=== PATIENT | male | born 1965 | race Caucasian/White ===

== ENCOUNTER 2017-04-29 10:36 | Outpatient (CLI) | payer BC ==
[2017-04-29 11:29] LABS: Hemoglobin 16.5 g/dL (14.0-18.0); Mean Corpuscular HGB CONC 32.8 g/dL (32.0-36.0); Mean Corpuscular Hemoglobin 28.7 pg (27.0-31.0); Mean Corpuscular Volume 87.4 fl (80.0-94.0); Mean Platelet Volume 7.9 fL (7.4-10.4); Platelet Count 213 thou/uL (130-400); RBC Distribution Width 13.7 % (11.5-14.5); Red Blood Cell (RBC) Count 5.76 mill/uL (4.70-6.10); White Blood Cell (WBC) Count 8.9 thou/uL (4.8-10.8)
[2017-04-29 11:39] LABS: PTT 23.9 SEC (22.9-36.1); Prothrombin Time 12.9 SEC (12.0-14.7)
[2017-04-29 12:07] LABS: Calcium 9.6 mg/dL (7.8-10.44); Chloride 104 mmol/L (98-107); Potassium 4.8 mmol/L (3.5-5.1); Sodium 138 mmol/L (136-145)
[2017-04-29 12:24] LABS: ALT (SGPT) 20 U/L (8-55); AST (SGOT) 25 U/L (5-34); Albumin 4.5 g/dL (3.5-5.0); Alkaline Phosphatase 70 U/L (40-150); Anion Gap 21 mmol/L (10-20); BUN (Urea Nitrogen) 27 mg/dL (8.4-25.7); Bilirubin, Total 0.7 mg/dL (0.2-1.2); Calc. Creatinine Clearance 0 mL/min (70-130); Carbon Dioxide 19 mmol/L (22-29); Estimated GFR-MDRD 70; Globulin 3.7 g/dL (2.4-3.5); Glucose 142 mg/dL (70-105); Protein, Total 8.2 g/dL (6.0-8.3)
--- NOTE | 2017-04-29 12:28 | RAD ---
TWO VIEWS CHEST: Comparison: 02-04-08 History: Pre-operative radiograph. FINDINGS: Two views of the chest show normal sized cardiomediastinal silhouette. There is no evidence of consol idation, mass, or pleural effusion. The bones are unremarkable. IMPRESSION: No evidence of acute cardiopulmonary disease. POS: [facility]
--- NOTE | 2017-06-28 21:49 | EKG ---
Test Reason : Blood Pressure : / mmHG Vent. Rate : 079 BPM Atrial Rate : 079 BPM P-R Int : 174 ms QRS Dur : 088 ms QT Int : 368 ms P-R-T Axes : 042 022 065 degrees QTc Int : 421 ms Normal sinus rhythm Normal ECG No previous ECGs available Confirmed by IVAN LAU M.D. ([id number]) on 06/28/2017 9:49:20 PM Referred By: NOE Confirmed By:IVAN LAU M.D.
== END 2017-04-29 10:37 | disposition home or self-care (01) ==
LOC: LABBT 10:36
PROVIDERS: ATTEND Internal Medicine Cardiovascular Disease
DX: Z01.818 Encounter for other preprocedural examination (principal); R94.39 Abnormal result of other cardiovascular function study
CPT/HCPCS: 71046; 80053; 85027; 85610; 85730; 93005; 93010

== ENCOUNTER 2017-05-03 06:02 | Inpatient (IN) | payer BC ==
[2017-05-03] MEDS ORDERED: Midazolam HCl 2 mg/2 ml Vial ONE (07:08)
[2017-05-03] MEDS ORDERED: Fentanyl 100 MCG/2 ML VIAL ONE (07:09)
[2017-05-03 07:21] LABS: Cholesterol 174 mg/dl (< 200 Desired); HDL Cholesterol 29 mg/dL (>60 Neg Risk); Triglycerides 447 mg/dL (Less than 150)
[2017-05-03] MEDS ORDERED: Heparin 10,000 UNITS/1 ML VIAL ONE (07:30)
[2017-05-03] MEDS ORDERED: Heparin 25,000 units/D5W 500 ML ONE (07:35)
[2017-05-03] MEDS ORDERED: Nitroglycerin 0.4 MG TAB (25 Tab Bottle) SL PRN (07:38)
[2017-05-03] MEDS ORDERED: Acetaminophen/Codeine 30-300mg Tablet PO PRN ×2 (07:38)
[2017-05-03] MEDS ORDERED: traMADol HCl 50 MG TAB PO PRN (07:38)
[2017-05-03] MEDS ORDERED: Heparin 25,000 units/D5W 500 ML IVPB SCH (07:45)
[2017-05-03] MEDS ORDERED: Heparin 10,000 UNITS/ 10 ML VIAL SLOW IVP SCH (07:45)
[2017-05-03] MEDS ORDERED: Sodium Chloride 0.9% 1,000 ML IV SCH (07:45)
[2017-05-03] MEDS ORDERED: Sodium Chloride 0.9% 200 ML IV SCH (07:45)
[2017-05-03 08:05] LABS: Platelet Count 275 thou/uL (130-400)
[2017-05-03 08:41] LABS: PTT 127.1 SEC (22.9-36.1)
[2017-05-03] MEDS: Lisinopril 20 MG TAB PO SCH (09:00)
[2017-05-03 10:16] VITALS: BMI 40.5
[2017-05-03] MEDS ORDERED: Iopamidol 370 76% 100 ML VIAL ONE (11:33)
[2017-05-03] MEDS ORDERED: Communication Order-Pharmacy FS SCH (18:01)
[2017-05-03] MEDS ORDERED: Temazepam 15 MG CAP PO PRN (18:01)
[2017-05-03] MEDS ORDERED: CEFAZOLIN/Water 2 GM/20 ML SYRINGE SLOW IVP SCH (18:15)
[2017-05-03] MEDS ORDERED: FLU VACC QS2017-18 36 mo. & older 0.5 ML SYRINGE IM ONE (21:00)
--- NOTE | 2017-05-03 23:18 | CON ---
DATE OF CONSULTATION: 05/03/2017. REQUESTING PHYSICIAN: Dax Martinez MD PRIMARY CARE PHYSICIAN: Jose Luis Baumann MD CHIEF COMPLAINT: Chest pain. HISTORY OF PRESENT ILLNESS: The patient is a 51-year-old poorly controlled diabetic man with a stron g family history of premature coronary disease. Over the last few months, he has had several episode s of chest pain associated with an ache or numbness in the ulnar distribution of both forearms and юлия th hands. He underwent cardiac evaluation leading to catheterization today. This demonstrates a thr ee-vessel coronary disease with mildly decreased LV function. PAST MEDICAL HISTORY: Significant for diabetes, hypertension, and hypercholesterolemia. HOME MEDICATIONS: Pitavastatin 2 mg a day, indapamide (Lozol) 2.5 mg a day, Lopressor 25 mg a day, l isinopril 40 mg a day, and a baby aspirin a day. CURRENT MEDICATIONS: Heparin drip, lisinopril 20 mg a day, Toprol-XL 25 mg a day, sublingual nitrogl ycerin. ALLERGIES: He denies any medical allergies, but had muscle aching with ATORVASTATIN. SOCIAL HISTORY: He smokes about a 1/2 pack of cigarettes a day. FAMILY HISTORY: Significant for his father and all of his siblings having MIs starting in early age. His father had 2 coronary bypass procedures. REVIEW OF SYSTEMS: Negative for any transient eye, speech, facial, or extremity symptoms to suggest TIAs. Negative for any shortness of breath. Positive for radiation to his arms; is also positive fo r numbness in the left periorbital and temporal areas, status post surgery for trigeminal neuralgia; and numbness to the soles of his feet. PHYSICAL EXAMINATION: GENERAL: He is a large man in no distress. VITAL SIGNS: Height 6 feet 3 inches, weight 324 pounds. Heart rates in the upper 70s to low 80s, bl ood pressure 126/68, temperature is 98.4. NECK: He has no carotid bruits. No JVD. CHEST: Clear to auscultation. CARDIOVASCULAR: He has regular rate and rhythm. ABDOMEN: Soft and nontender with reducible small umbilical hernia. EXTREMITIES: He has easily palpable radial pulses bilaterally with normal Dann's testing. He has a palpable left femoral pulse. He has a femoral sheath in place in the right groin. He has easily pa lpable dorsalis pedis and posterior tibial pulses. He has some venous stasis changes in his feet and ankles. He has brisk capillary refill in the toes. He has no obvious focal motor deficits. LABORATORY DATA: Shows white count of 8.9, hemoglobin 16.5, hematocrit 50.3, platelets 213,000. INR is 1, PTT is 23.6. Normal electrolytes. Glucose 142, BUN 27, creatinine 1.1, bilirubin is 0.7, alk taylor phosphatase 70, AST 25, ALT 20, calcium 9.6, protein 8.2, albumin 4.5, triglycerides 447, regla sterol 174, HDL was 29. Per Dr. Martinez's office note, his hemoglobin A1c was 9.8. His chest x-ray perhaps shows borderline cardiomegaly and some prominent lung markings. His cardiac catheterization shows an EF of around 40%-45% with an LVEDP of 7. He has a right dominant system wit h extensive disease throughout the right coronary proper and down at the crux. The PDA appears to fi ll by right to right collaterals distally. There is some smooth tapering visible in one of the views in the ostium of the LAD, probably measuring about 20%-30% stenosis. There is a small first septal emt/paramedic and a large second septal emt/paramedic. There is about a 60% lesion in the LAD at that leve l and a high-grade ostial lesion in a large diagonal at that level, as well as some mid disease in th at diagonal. He has an occluded circumflex with small distal targets, but an OM1 ghosts in and thoug h small is reasonable size. IMPRESSION AND PLAN: Three-vessel coronary disease including mild ostial left anterior descending le nhi and a more significant lesion at the level of the large diagonal with an ostial lesion. We will plan on coronary artery bypass grafting. I have discussed with him strategies for multiple arterial conduits because of his young age, and we will plan on left radial and defer bilateral mammaries in light of his poorly controlled diabetes.
[2017-05-04] MEDS: Lisinopril 20 MG TAB PO SCH (05:13)
[2017-05-04] MEDS ORDERED: Fentanyl 100 MCG/2 ML VIAL ONE (06:34)
[2017-05-04] MEDS ORDERED: Midazolam HCl 5 mg/5 ml Vial ONE (06:34)
[2017-05-04] MEDS ORDERED: Dexmedetomidine 200 MCG/2 ML VIAL ONE (06:35)
[2017-05-04] MEDS ORDERED: Vecuronium 10 MG VIAL ONE ×3 (06:35→16:06)
[2017-05-04] MEDS ORDERED: Norepinephrine 8 MG/0.9% NS 250 ML IVPB PRN (06:45)
[2017-05-04] MEDS ORDERED: Promethazine HCl 25 MG/ML VIAL IM PRN (06:45)
[2017-05-04] MEDS ORDERED: Heparin 10,000 UNITS/1 ML VIAL 30,000 UNITS in Sodium Chloride 0.9% 1,000 ML FS SCH (06:45)
[2017-05-04] MEDS ORDERED: Bisacodyl 10 MG SUPP PR PRN (06:45)
[2017-05-04] MEDS ORDERED: HYDROcodone/Acetaminophen 5/325 mg Tablet PO PRN (06:45)
[2017-05-04] MEDS ORDERED: Hetastarch 6% 500 ML 500 ML IVPB PRN (06:45)
[2017-05-04] MEDS ORDERED: Post-Op Insulin Drip Protocol IVPB ONE (06:45)
[2017-05-04] MEDS ORDERED: Guaifenesin DM 100-10/5 ML UDCUP PO PRN (06:45)
[2017-05-04] MEDS ORDERED: Potassium Chloride 20 MEQ/100 ML PREMIX BAG IVPB PRN (06:45)
[2017-05-04] MEDS ORDERED: Bisacodyl 5 MG TAB PO PRN (06:45)
[2017-05-04] MEDS ORDERED: Mag-Al 1200 mg/1200 mg/30 ML UDCUP PO PRN (06:45)
[2017-05-04] MEDS ORDERED: hydrALAZINE 20 MG/ML VIAL SLOW IVP PRN (06:45)
[2017-05-04] MEDS ORDERED: Nitroglycerin 50 MG/250 ML BOT 250 ML IVPB PRN (06:45)
[2017-05-04] MEDS ORDERED: Albumin 5% 500 ML ONE (06:52)
[2017-05-04] MEDS ORDERED: Papaverine 60 MG/2 ML VIAL ONE (06:52)
[2017-05-04] MEDS ORDERED: Dextrose 50% Abboject 50 ML SYRINGE SLOW IVP PRN (07:02)
[2017-05-04] MEDS ORDERED: Dextrose 5% in Water 1,000 ML IV PRN (07:02)
[2017-05-04 07:13] LABS: #Basophils 0.1 thou/uL (0.0-0.2); #Eosinphils 0.1 thou/uL (0.0-0.7); #Lymphocytes 2.2 thou/uL (1.20-3.40); #Monocytes 0.5 thou/uL (0.11-0.59); #Neutrophils 5.7 thou/uL (1.40-6.50); %Basophils 1.2 % (0.0-1.0); %Eosinophils 1.7 % (0.0-10.0); %Lymphocytes 25.7 % (21.0-51.0); %Monocytes 5.7 % (0.0-10.0); %Neutrophils 65.7 % (42.0-75.0); Hemoglobin 15.5 g/dL (14.0-18.0); Mean Corpuscular HGB CONC 33.3 g/dL (32.0-36.0); Mean Corpuscular Hemoglobin 28.9 pg (27.0-31.0); Mean Corpuscular Volume 86.9 fl (80.0-94.0); Platelet Count 257 thou/uL (130-400); RBC Distribution Width 13.8 % (11.5-14.5); Red Blood Cell (RBC) Count 5.36 mill/uL (4.70-6.10); White Blood Cell (WBC) Count 8.6 thou/uL (4.8-10.8)
[2017-05-04 07:29] LABS: Anion Gap 13 mmol/L (10-20); BUN (Urea Nitrogen) 20 mg/dL (8.4-25.7); Calc. Creatinine Clearance 184 mL/min (70-130); Calcium 9.4 mg/dL (7.8-10.44); Carbon Dioxide 24 mmol/L (22-29); Chloride 101 mmol/L (98-107); Estimated GFR-MDRD 80; Glucose 154 mg/dL (70-105); Potassium 4.2 mmol/L (3.5-5.1); Sodium 134 mmol/L (136-145)
[2017-05-04] MEDS ORDERED: Insulin Regular 300 UNITS/3 ML VIAL ONE (08:35)
[2017-05-04] MEDS ORDERED: Ketorolac Tromethamine 30 MG/ML VIAL IVP SCH (12:00)
[2017-05-04] MEDS ORDERED: Protamine Sulfate 50 MG/5 ML VIAL ONE (13:02)
--- NOTE | 2017-05-04 14:59 | RAD ---
CHEST ONE VIEW: History: Post open heart surgery. Comparison: 04-29-17 FINDINGS: The patient is intubated with endotracheal tube tip felt to be above the braydon approximately 1.5 cm. Lungs are hyperinflated. Enteric tube tip below diaphragm. Left central venous catheter tip lower SVC. Left thoracostomy is in place as well as mediastinal drai ns. IMPRESSION: Expected post-operative changes without complication. POS: [facility]
--- NOTE | 2017-05-04 15:06 | OP ---
DATE OF PROCEDURE: 05/04/2017 PROCEDURES PERFORMED: Coronary artery bypass grafting x4 with sequential left internal mammary arter y to the second diagonal to the distal left anterior descending, reverse greater saphenous vein graft from the aorta to the distal posterior descending artery and left radial artery from the [place] of the posterior descending artery proximal anastomosis to the obtuse marginal, left subclavian central stef e placement. PREOPERATIVE DIAGNOSIS: Coronary artery disease. POSTOPERATIVE DIAGNOSIS: Coronary artery disease. SURGEON: Agustin George M.D. UNLOADER OPERATOR: Harvey Beasley M.D. ANESTHESIA: General endotracheal. INDICATIONS: The patient is a 51-year-old poorly controlled diabetic man with a strongly positive [facility] history for premature coronary disease. He had had several episodes of chest discomfort radiati ng to both forearms and hands and was found to have severe 3-vessel coronary disease with mildly decr eased LV function. He is now taken to the operating room for revascularization. FINDINGS: Pump time 97 minutes. Cross clamp time 80 minutes. There was some plaque in the aortic r oot, prompting construction of proximal anastomoses under cross clamp. He had a good quality conduit . The LAD was about a 1.5-2 mm good quality vessel distally. The second diagonal was diffusely dise ased through its mid portion. Distally, it was 1.5 mm in fairly good quality, the obtuse marginal wa s 1.5-2 mm in good quality and were grafted. The PDA was diffusely diseased out through its mid port ion distally and were grafted as 1.5-2 mm good quality vessel. The pericardium was closed. NARRATIVE REPORT: After informed consent was obtained, the patient was taken to the operating room a nd placed in supine position on the operating table. After the induction of general anesthesia, the patient's left upper chest was prepped and draped in sterile fashion. A large bore needle was used t o cannulate the left subclavian vein after the patient had been placed in Trendelenburg. Through the Seldinger technique, the left subclavian vein was cannulated with a triple lumen catheter. All thre e ports easily aspirated and flushed. The line was secured. The patient's left upper extremity tors o, groins and lower extremities were then prepped and draped in sterile fashion and hearing aid assistant harvest ed vein from the left thigh endoscopically starting at the knee where it had been identified ultrason ographically and going to the groin. It was prepared for use as a graft and the harvest sites were c losed in layers of subcutaneous and subcuticular Vicryl. The radial artery was exposed at the wrist, it was isolated there and a test occlusion showed good Doppler signal in the palmar arch and in the digits preserved with the radial artery occluded. The radial artery was then harvested from the wris t to about the level of the interosseous vessel controlling side branches with small Hemoclips. It w as doubly ligated and divided first proximally, back bleeding was observed and that was doubly ligate d and divided distally. The distal limb was cannulated with a small bore olive tip needle and papave rine solution was used to distend the radial artery to relieve spasm and to assess for adequacy of co ntrol of side branches. The wound was irrigated and closed in layers of subcutaneous and subcuticula r Vicryl. Median sternotomy was performed. The left pleural space was entered and the left KERWIN was mobilized as a skeletonized in situ graft from the level of the xiphoid to the level of the subclavia n vein. Side branches controlled with small Hemoclips. The patient was heparinized. The mammary wa s ligated and divided distally. There is good flow through the mammary which was then instilled intr aluminally with papaverine solution. The mammary bed was inspected for hemostasis. The KERWIN retracto r was placed with the De La Rosa retractor. The pericardium was opened and marsupialized. The aorta w as palpated and appeared to be soft. A double concentric pursestring of 2-0 Ethibond was placed in t he ascending aorta just beyond the pericardial reflection. Then, a single pursestring was placed in the right atrial appendage. Aortic and venous cannulae were inserted and secured by their pursestrin gs. The plane between the aorta and the pulmonary artery was developed. Cardiopulmonary bypass was instituted. The heart was examined. The vessel to be bypassed were identified, reexamining the de-p ressurized aorta, plaque to be felt at the very base of the root on the right lateral aspect and prep arations were made to perform the operation under single clamp to avoid disrupting that plaque. Aort ic cross clamp was applied and cardioplegia was administered through aortic root needle. A longitudi nal slit was made in the pericardium anterior to the left phrenic nerve, so as mammary could be passe d. When arrest had been achieved, attention was turned to the PDA, was exposed and opened distally w ith a Norton blade and Gustavo scissors and saphenous vein was anastomosed theirs end-to-side with r unning Prolene suture. Attention was then turned to the obtuse marginal. The more anterior branch a ppeared to be the larger better quality vessel. It was opened. The proximal end of the radial arter y was freshened and slightly spatulated and anastomosed their end-to-side with running 7-0 Prolene. The mammary was introduced into the pericardium. It appeared to be an adequate lie in length in orde r to sequence the second diagonal and the distal LAD. The diagonal was opened and the corresponding longitudinal arteriotomy was made, left mammary iimj-cd-guci anastomosis was then constructed from th e mammary to the diagonal with running 7-0 Prolene. The LAD was then opened and the end of the mamma ry was then anastomosed their end-to-side with running 7-0 Prolene. Additional cardioplegia was admi nistered. At that point, an aortotomy was made in the ascending aorta with a scalpel and punch. The PDA graft was brought along the right side of the heart and trimmed to length and spatulated and arabella stomosed their end-to-side with a running Prolene with that suture line slightly frustrated. Additio nal cardioplegia was administered to flush the root of air and help distend the vein graft and then a longitudinal venotomy was made in the [place] of that vein graft proximal anastomosis, it was extended with scissors. The radial graft to the obtuse marginal was trimmed to length and spatulated and anas tomosed there with running 7-0 Prolene. Again with that suture line frustrated, cardioplegia was adm inistered through the root needle to help flush of air and the suture line was secured. The patient was placed in Trendelenburg and with the root back on suction and the mammary pedicle released, the a ortic cross clamp was removed. The vein graft was deaired and the bulldog removed from it. The anas tomoses were inspected for hemostasis, 36 Emir[place] left chest T-tube was brought out through a separate incision and secured to suture. The posterior pericardial drain was brought out through separate in cision and secured. Right atrial and right ventricular temporary epicardial pacing wires were placed . The needle was removed and insertion site controlled with a pursestring Prolene suture. The patie nt was then easily from cardiopulmonary bypass. Aortic and venous cannulae were removed an d their pursestring secured. Protamine was administered. When hemostasis was adequate, an anterior mediastinal drain was placed and the pericardium was easily closed over with running Vicryl. The cori rnum was reapproximated with #7 stainless steel wires. The fascia was closed over the wires with hea vy Vicryl. Subcutaneous tissue was irrigated and reapproximated and skin was closed with Vicryl subc uticular stitch. The wounds were dressed and the patient was taken to the Intensive Care in stable c ondition.
[2017-05-04] MEDS: Sodium Chloride 0.9% 1,000 ML IV SCH ×2 (15:28→17:02)
[2017-05-04] MEDS: Ondansetron HCl/PF 4 MG/2 ML Vial IVP PRN (15:30)
[2017-05-04 15:39] LABS: Base Excess (BEa) -4.5 mEq/L (0 (+/-) 2.5); CO2 Tension 44.1 mmHg (35.0-45.0); Calcium, Ionized 1.1 mmol/L (1.12-1.30); Hematocrit-ABG 43.9 % (42.0-52.0); Hemoglobin (Hb) 14.6 g/dL (14.0-18.0); O2 Tension (PaO2) 87.3 mmHg (80.0-100.0); Puncture Site ALINE; pH, Arterial 7.31 (7.35-7.45)
[2017-05-04 15:40] LABS: ALV-art Gradient 570.575 (0-20)
[2017-05-04] MEDS: CEFAZOLIN 1 GM, Syringe 2.5 ML in Sterile Water 7.5 ML SLOW IVP SCH ×2 (15:47→15:48)
[2017-05-04] MEDS: Famotidine/PF 20 mg/2ml Vial SLOW IVP SCH ×2 (15:48→20:38)
[2017-05-04 15:56] LABS: Hemoglobin 15.1 g/dL (14.0-18.0); Mean Corpuscular HGB CONC 32.9 g/dL (32.0-36.0); Mean Corpuscular Volume 88.2 fl (80.0-94.0); Mean Platelet Volume 7.2 fL (7.4-10.4); Platelet Count 247 thou/uL (130-400); RBC Distribution Width 13.9 % (11.5-14.5); Red Blood Cell (RBC) Count 5.22 mill/uL (4.70-6.10); White Blood Cell (WBC) Count 27.6 thou/uL (4.8-10.8)
[2017-05-04 16:00] LABS: INR-International Normal Ratio 1.2; PTT 30.9 SEC (22.9-36.1); Prothrombin Time 15.1 SEC (12.0-14.7)
[2017-05-04] MEDS ORDERED: Heparin 5,000 UNITS/ML VIAL ONE (16:06)
[2017-05-04] MEDS ORDERED: Cardioplegic Soln 1,000 ML BAG ONE (16:06)
[2017-05-04] MEDS ORDERED: Calcium Chloride 1 GM/10 ML Abboject SYRINGE ONE (16:06)
[2017-05-04] MEDS ORDERED: Protamine Sulfate 250 MG/25 ML VIAL ONE (16:06)
[2017-05-04] MEDS ORDERED: ePHEDrine/0.9% NaCl/PF SYRINGE 50 mg/10 ml ONE (16:06)
[2017-05-04] MEDS ORDERED: Magnesium 5 GM/10 ML VIAL ONE (16:06)
[2017-05-04] MEDS ORDERED: Nitroglycerin 50 MG/250 ML BOT ONE (16:06)
[2017-05-04] MEDS ORDERED: Aminocaproic Acid 5 GM/20 ML VIAL ONE (16:06)
[2017-05-04] MEDS ORDERED: Heparin 30,000 units/30 ml VIAL ONE (16:06)
[2017-05-04] MEDS ORDERED: PHENYLEPHRINE-NS 100 MCG/ML 10 ML SYRINGE ONE (16:06)
[2017-05-04] MEDS ORDERED: Lidocaine 1% PF 5 ML VIAL ONE (16:06)
[2017-05-04] MEDS ORDERED: Potassium Chloride 60 MEQ/30 ML VIAL ONE (16:06)
[2017-05-04] MEDS ORDERED: Lidocaine 2% PF 100 mg/5 ml Syringe ONE (16:06)
[2017-05-04] MEDS ORDERED: Sodium Bicarb 50 MEQ/50 ML VIAL ONE (16:06)
[2017-05-04] MEDS ORDERED: Propofol 200 MG/20 ML VIAL ONE (16:06)
[2017-05-04 16:08] LABS: Anion Gap 12 mmol/L (10-20); BUN (Urea Nitrogen) 22 mg/dL (8.4-25.7); Calc. Creatinine Clearance 130 mL/min (70-130); Calcium 8.6 mg/dL (7.8-10.44); Carbon Dioxide 24 mmol/L (22-29); Chloride 106 mmol/L (98-107); Estimated GFR-MDRD 54; Glucose 152 mg/dL (70-105); Potassium 4.3 mmol/L (3.5-5.1); Sodium 138 mmol/L (136-145)
[2017-05-04 16:25] LABS: Band 6 % (5-11); Eosinophils 1 % (0-10); Lymphocytes 1 % (21-51); MDiff Complete? YES; Monocytes 3 % (0-10); Neutrophil 89 % (42-75); PLT Morphology Comment Appears Adequate
[2017-05-04] MEDS ORDERED: Norepinephrine 8 MG in Sodium Chloride 0.9% 250 ML 250 ML IVPB PRN ×2 (16:30→16:46)
[2017-05-04] MEDS: Ketorolac Tromethamine 30 MG/ML VIAL IVP SCH ×3 (17:27→23:51)
[2017-05-04 20:06] LABS: Actual Bicarbonate (HCO3a) 21.2 mEq/L (22-26); Base Excess (BEa) -4.2 mEq/L (0 (+/-) 2.5); CO2 Tension 40.1 mmHg (35.0-45.0); Hematocrit-ABG 42.2 % (42.0-52.0); Hemoglobin (Hb) 13.5 g/dL (14.0-18.0); O2 Tension (PaO2) 59.2 mmHg (80.0-100.0); pH, Arterial 7.34 (7.35-7.45)
[2017-05-04 20:07] LABS: ALV-art Gradient 175.875 (0-20); Calcium, Ionized 1.1 mmol/L (1.12-1.30); Puncture Site LINE
[2017-05-04] MEDS: Fentanyl 100 MCG/2 ML VIAL SLOW IVP PRN ×2 (20:37→22:30)
[2017-05-04 20:38] LABS: Hemoglobin 13.8 g/dL (14.0-18.0)
[2017-05-04 20:53] LABS: Potassium 4.6 mmol/L (3.5-5.1)
--- NOTE | 2017-05-04 20:59 | EKG ---
Test Reason : POST CABG Blood Pressure : / mmHG Vent. Rate : 092 BPM Atrial Rate : 092 BPM P-R Int : 162 ms QRS Dur : 090 ms QT Int : 386 ms P-R-T Axes : 068 022 072 degrees QTc Int : 477 ms Normal sinus rhythm Normal ECG When compared with ECG of 29-APR-2017 11:13, (Unconfirmed) QT has lengthened Confirmed by MARGARITA RONDON ([id number]) on 05/04/2017 8:58:57 PM Referred By: QUYNH Confirmed By:MARGARITA RONDON
[2017-05-05] MEDS: Fentanyl 100 MCG/2 ML VIAL SLOW IVP PRN ×2 (03:31→20:45)
[2017-05-05] MEDS: Sodium Chloride 0.9% 1,000 ML IV SCH ×2 (03:32→10:45)
[2017-05-05 04:56] LABS: Anion Gap 10 mmol/L (10-20); BUN (Urea Nitrogen) 23 mg/dL (8.4-25.7); Calc. Creatinine Clearance 155 mL/min (70-130); Calcium 8.2 mg/dL (7.8-10.44); Carbon Dioxide 24 mmol/L (22-29); Chloride 108 mmol/L (98-107); Estimated GFR-MDRD 66; Glucose 139 mg/dL (70-105); Sodium 138 mmol/L (136-145)
[2017-05-05 05:01] LABS: #Lymphocytes 2.3 thou/uL (1.20-3.40); #Neutrophils 12.1 thou/uL (1.40-6.50); %Basophils 0.3 % (0.0-1.0); %Eosinophils 0.1 % (0.0-10.0); %Monocytes 6.7 % (0.0-10.0); %Neutrophils 77.9 % (42.0-75.0); Mean Corpuscular HGB CONC 32.6 g/dL (32.0-36.0); Mean Corpuscular Hemoglobin 28.7 pg (27.0-31.0); Mean Corpuscular Volume 88.1 fl (80.0-94.0); Mean Platelet Volume 7.2 fL (7.4-10.4); Platelet Count 273 thou/uL (130-400); RBC Distribution Width 14.2 % (11.5-14.5); Red Blood Cell (RBC) Count 4.53 mill/uL (4.70-6.10); White Blood Cell (WBC) Count 15.6 thou/uL (4.8-10.8)
[2017-05-05] MEDS: Ketorolac Tromethamine 30 MG/ML VIAL IVP SCH ×2 (05:45→11:43)
[2017-05-05] MEDS: HYDROcodone/Acetaminophen 5/325 mg Tablet PO PRN ×3 (06:08→16:41)
[2017-05-05] MEDS: Ondansetron HCl/PF 4 MG/2 ML Vial IVP PRN (06:09)
--- NOTE | 2017-05-05 06:36 | CON ---
DATE OF CONSULTATION: 05/04/2017 HISTORY OF PRESENT ILLNESS: Mr. Foote is a 51-year-old male who has diabetes. He underwent coronary artery bypass grafting today, consulted to assist in his management. The nurses stated he was having significant obstructive apnea last night so they continuously were waking him up. PAST MEDICAL HISTORY: Remarkable for diabetes, hypertension, and lipid disorder. MEDICATIONS: Prior to admission, he was on a statin, Lozol, Lopressor, lisinopril, and aspirin. SOCIAL HISTORY: He is half pack a day smoker. He is not a daily drinker. He has no history of drug use. ALLERGIES: He has had muscle aches with ATORVASTATIN for drug allergies. FAMILY HISTORY: Positive for vascular disease, he has several siblings that have had coronary artery disease. REVIEW OF SYSTEMS: Review of systems on admission was remarkable for chest discomfort radiating into his arm. PHYSICAL EXAMINATION: VITAL SIGNS: Blood pressure 103/72, heart rate is 89, respiratory rate is per mechanical ventilation. His arterial blood pressure is 105/61, he is afebrile. HEENT: Pupils are equal. Sclerae is anicteric. NECK: Supple. LUNGS: Sternum is bandaged. Lungs are clear. HEART: Regular rhythm. ABDOMEN: Soft. EXTREMITIES: Without asymmetry. LABORATORY DATA: White count was 8.6 this morning, 27.6 postop, hemoglobin stable at 15.1 at 2:30, hemoglobin this evening is 13.8, platelets 247,000. Blood gas 7.34, CO2 of 40, pO2 of 59. Electrolytes were normal. IMPRESSION: 1. Coronary artery disease, status post coronary artery bypass grafting. 2. Probable obstructive sleep apnea. He can wean for criteria, but would probably benefit from going on BiPAP once extubated if he is completely awake. We will be happy to follow with the other physicians caring for him. Critical care time was 30 minutes. [facility]ITAL[facility]
[2017-05-05] MEDS: Famotidine/PF 20 mg/2ml Vial SLOW IVP SCH ×2 (08:15→20:49)
[2017-05-05] MEDS: Lisinopril 20 MG TAB PO SCH (08:15)
--- NOTE | 2017-05-05 08:51 | RAD ---
PORTABLE AP CHEST: Date: 05-05-17 History: Post open heart surgery. Comparison: 05-04-17 FINDINGS: The endotracheal tube and nasogastric tubes have been removed. Left subclavian central venous cathete r is again noted in place. Radiopaque tubing overlies the left lung base which may be related to asya tor leads. The left sided thoracotomy tube appears to have been removed as well. There is no pneumoth orax seen on this exam. The cardiac silhouette and bronchovascular markings are accentuated by a shal low depth of inspiration, and there is probably mild bibasilar atelectasis. Median sternotomy wires a re again related to prior CABG. IMPRESSION: 1. Interval removal of the endotracheal tube, nasogastric tube and left sided thoracotomy tube. No pn eumothorax is seen. 2. Bibasilar atelectasis. There is also accentuation of the bronchovascular markings and cardiac silh ouette due to the shallow depth of inspiration. POS: [facility]
[2017-05-05] MEDS ORDERED: Hetastarch 6% 500 ML 500 ML IVPB PRN (09:28)
[2017-05-05] MEDS ORDERED: Furosemide 40 MG/4 ML VIAL SLOW IVP SCH (17:45)
--- NOTE | 2017-05-05 18:40 | PRG ---
DATE OF SERVICE: 05/05/2017 SUBJECTIVE: Mr. Foote is sleeping on BiPAP today. OBJECTIVE: GENERAL: He is in no distress. VITAL SIGNS: Heart rate 102, blood pressure 109/71, respiratory rate 15, oximetry is 90%. LUNGS: C lear. HEART: Regular rhythm. ABDOMEN: Soft. IMAGING: Chest radiograph was reviewed and shows bibasilar atelectasis as expected. LABORATORY DATA: White count 15.6, hemoglobin 13.0, platelets 273. Sodium 138, potassium 4, chloride 108, bicarbonate 24, BUN 23, creatinine 1.16. IMPRESSION: 1. Status post coronary artery bypass grafting. 2. Probable untreated sleep apnea. PLAN: Continue BiPAP at bedtime and p.r.n.
[2017-05-05] MEDS: Insulin Regular 300 UNITS/3 ML VIAL SC PRN (21:41)
[2017-05-06] MEDS: Acetaminophen 325 MG TAB PO PRN (00:46)
[2017-05-06] MEDS: Insulin Regular 300 UNITS/3 ML VIAL SC PRN ×5 (00:48→21:50)
[2017-05-06] MEDS: HYDROcodone/Acetaminophen 5/325 mg Tablet PO PRN (02:00)
[2017-05-06 04:48] LABS: #Lymphocytes 2.7 thou/uL (1.20-3.40); #Monocytes 0.9 thou/uL (0.11-0.59); #Neutrophils 10.7 thou/uL (1.40-6.50); %Basophils 0.1 % (0.0-1.0); %Eosinophils 0.2 % (0.0-10.0); %Lymphocytes 18.7 % (21.0-51.0); %Monocytes 6.3 % (0.0-10.0); %Neutrophils 74.7 % (42.0-75.0); Hemoglobin 11.5 g/dL (14.0-18.0); Mean Corpuscular HGB CONC 32.6 g/dL (32.0-36.0); Mean Corpuscular Volume 88.8 fl (80.0-94.0); Mean Platelet Volume 7.1 fL (7.4-10.4); Platelet Count 190 thou/uL (130-400); Red Blood Cell (RBC) Count 3.96 mill/uL (4.70-6.10); White Blood Cell (WBC) Count 14.3 thou/uL (4.8-10.8)
[2017-05-06 05:03] LABS: Anion Gap 12 mmol/L (10-20); BUN (Urea Nitrogen) 21 mg/dL (8.4-25.7); Calc. Creatinine Clearance 172 mL/min (70-130); Calcium 8.1 mg/dL (7.8-10.44); Carbon Dioxide 25 mmol/L (22-29); Chloride 104 mmol/L (98-107); Estimated GFR-MDRD 74; Glucose 154 mg/dL (70-105); Potassium 4.1 mmol/L (3.5-5.1); Sodium 137 mmol/L (136-145)
[2017-05-06] MEDS: Fentanyl 100 MCG/2 ML VIAL SLOW IVP PRN (05:36)
[2017-05-06] MEDS ORDERED: Artificial Tears 18 DROP/0.9 ML EA EYE PRN (07:15)
[2017-05-06] MEDS ORDERED: Guaifenesin DM 100-10/5 ML UDCUP PO PRN (07:15)
[2017-05-06] MEDS ORDERED: Mineral Oil ENEMA PR PRN (07:15)
[2017-05-06] MEDS ORDERED: diphenhydrAMINE 25 MG CAP PO PRN (07:15)
[2017-05-06] MEDS ORDERED: Nitroglycerin 0.4 MG TAB 1 EACH SL PRN (07:15)
[2017-05-06] MEDS ORDERED: Bisacodyl 5 MG TAB PO PRN (07:15)
[2017-05-06] MEDS ORDERED: Mag-Al 1200 mg/1200 mg/30 ML UDCUP PO PRN (07:15)
[2017-05-06] MEDS ORDERED: Bisacodyl 10 MG SUPP PR PRN (07:15)
[2017-05-06] MEDS ORDERED: Zolpidem Tartrate 5 MG TAB PO PRN (07:15)
--- NOTE | 2017-05-06 08:37 | RAD ---
PORTABLE AP CHEST XRAY: DATE: 05/06/17. HISTORY: Post open heart surgery. COMPARISON: 05/05/17. FINDINGS: Left subclavian central venous catheter remains in place and unchanged in position. Postsurgical liliana nges related to median sternotomy are again noted. The cardiac silhouette does appear enlarged. Rad iopaque tubing overlies the left lung and is probably related to left-sided thoracostomy tube in kelvin tion to overlying monitor leads. There are parenchymal changes seen at each lung base probably relat ed to bibasilar atelectasis. Linear density is seen in the region of the right mid lung zone which m ay be related to either atelectasis or a small amount of fluid within the minor fissure. Pulmonary v asculature is at the upper limits of normal. No pneumothorax is appreciated. IMPRESSION: 1. Left-sided thoracostomy tube without an obvious pneumothorax seen. 2. Bibasilar atelectasis. A tiny left pleural effusion cannot be entirely excluded. 3. Cardiomegaly. POS: [facility]
[2017-05-06] MEDS: Aspirin 325 mg Enteric Coated Tablet PO SCH (08:52)
[2017-05-06] MEDS: Lisinopril 20 MG TAB PO SCH (08:52)
[2017-05-06] MEDS: Furosemide 40 MG TAB PO SCH ×2 (08:52→13:26)
[2017-05-06] MEDS: Famotidine/PF 20 mg/2ml Vial SLOW IVP SCH (08:53)
[2017-05-06] MEDS ORDERED: Furosemide 20 MG TAB PO SCH (09:00)
[2017-05-06] MEDS: Carvedilol 3.125 MG TAB PO SCH ×2 (09:02→20:40)
[2017-05-06] MEDS: Ketorolac Tromethamine 30 MG/ML VIAL IVP SCH ×3 (11:20→23:11)
[2017-05-06] MEDS: Famotidine 20 MG TAB PO SCH (20:40)
--- NOTE | 2017-05-07 02:35 | PRG ---
DATE OF SERVICE: 05/06/2017 SUBJECTIVE: Jose Carlos Foote is clearly doing a little better each day. He is sleeping with his BiPAP. I have priced auto BiPAP and auto CPAP. Auto BiPAP ends up being about 1000 dollars or a little mo re. Auto CPAP is just under 500 dollars. Planned to switch him to CPAP tonight in the setting at 12 cm of water pressure and see how he does. OBJECTIVE: VITAL SIGNS: Blood pressure 137/69, heart rates in the 90s, respiratory rate is 18. LUNGS: Clear. HEART: Regular rhythm. ABDOMEN: Soft. LABORATORY DATA: White count 14.3, hemoglobin 11.5, platelets 190. Electrolytes are normal. Creatinine is 1.05. 1. Obesity hypoventilation/sleep apnea, severe, present prior to his operation. 2. We will treat him empirically with CPAP. Planned to prescribe an auto CPAP device for family deborah orrow. They can take over to one of the nearby [employer] companies and buy. [employer] across [facility] has several in stock and I would set him with a pressure range of 9 to probably 16 or 17 to see how he does. The family told me very quickly they are willing to buy one and the patient has had the same. We will do a sleep study later or simply monitoring with downloads for now until he recovers fully fr om his cardiac surgery. Chest radiograph today shows no new significant abnormalities, I reviewed this. IMPRESSION: 1. Status post coronary artery bypass grafting. 2. Obesity. 3. Untreated sleep apnea, tolerating BiPAP. PLAN: CPAP as mentioned tonosman and then I prescribe an auto titrating CPAP device tomorrow.
[2017-05-07 04:45] LABS: #Eosinphils 0.1 thou/uL (0.0-0.7); #Lymphocytes 2.3 thou/uL (1.20-3.40); #Monocytes 0.7 thou/uL (0.11-0.59); %Basophils 0.1 % (0.0-1.0); %Lymphocytes 20.6 % (21.0-51.0); %Monocytes 6.3 % (0.0-10.0); Hemoglobin 10.4 g/dL (14.0-18.0); Mean Corpuscular HGB CONC 32.8 g/dL (32.0-36.0); Mean Corpuscular Hemoglobin 29.2 pg (27.0-31.0); Mean Corpuscular Volume 89.2 fl (80.0-94.0); Mean Platelet Volume 7.3 fL (7.4-10.4); Platelet Count 190 thou/uL (130-400); RBC Distribution Width 13.8 % (11.5-14.5); Red Blood Cell (RBC) Count 3.55 mill/uL (4.70-6.10)
[2017-05-07 04:53] LABS: Anion Gap 12 mmol/L (10-20); BUN (Urea Nitrogen) 27 mg/dL (8.4-25.7); Calc. Creatinine Clearance 180 mL/min (70-130); Calcium 8.3 mg/dL (7.8-10.44); Carbon Dioxide 28 mmol/L (22-29); Chloride 101 mmol/L (98-107); Estimated GFR-MDRD 77; Glucose 125 mg/dL (70-105); Potassium 3.4 mmol/L (3.5-5.1); Sodium 138 mmol/L (136-145)
[2017-05-07] MEDS: Insulin Regular 300 UNITS/3 ML VIAL SC PRN ×2 (05:59→20:55)
[2017-05-07] MEDS: Ketorolac Tromethamine 30 MG/ML VIAL IVP SCH (06:01)
[2017-05-07] MEDS: Famotidine 20 MG TAB PO SCH ×2 (09:38→20:56)
[2017-05-07] MEDS: Carvedilol 3.125 MG TAB PO SCH ×2 (09:38→20:56)
[2017-05-07] MEDS: Aspirin 325 mg Enteric Coated Tablet PO SCH (09:38)
[2017-05-07] MEDS: Lisinopril 20 MG TAB PO SCH (09:38)
[2017-05-07] MEDS: Furosemide 40 MG TAB PO SCH ×2 (09:38→14:25)
--- NOTE | 2017-05-07 13:19 | PRG ---
DATE OF SERVICE: 05/07/2017 SUBJECTIVE: I met with his family, Mr. Foote is willing to buy an auto BiPAP. He probably can sell it back to Medicare equipment if he only uses it until a sleep study, but this may be actually an ad equate device to manage his sleep apnea after his sleep study. OBJECTIVE: VITAL SIGNS: His blood pressure is 133/85, heart rate is 90, respiratory rate in the teens. LUNGS: Clear. HEART: Regular rhythm. ABDOMEN: Soft and nontender. He is starting to ambulate more. We will set the auto BiPAP at a arrange of 9-15. I have written an order in computer for them to use it whenever he naps and when he sleeps at night. His family will go over and purchase the auto BiPAP device from [employer] equipment across the street . LABORATORY DATA: Today his white count is 11, hemoglobin 10.4, platelets 190. Sodium 138, potassium 3.4, chloride 101, bicarbonate 28, BUN 27, creatinine 1.02. IMPRESSION: Severe untreated sleep apnea. He says he feels 100% better from a mental status and kendal rtness standpoint than he did prior to coming to the hospital. It was clear to me that he really nee ded this, so it is appropriate to manage this auto titrating device for now. He has severe witnessed apnea since he has been in the ICU. From the standpoint of his coronary artery bypass grafting., he is doing well at this time. We will continue with cardiac rehabilitation.
[2017-05-07] MEDS: Acetaminophen 325 MG TAB PO PRN (19:17)
[2017-05-08 05:29] LABS: #Eosinphils 0.2 thou/uL (0.0-0.7); #Monocytes 0.7 thou/uL (0.11-0.59); #Neutrophils 6.2 thou/uL (1.40-6.50); %Basophils 0.4 % (0.0-1.0); %Eosinophils 1.8 % (0.0-10.0); %Lymphocytes 21.6 % (21.0-51.0); %Monocytes 7.3 % (0.0-10.0); %Neutrophils 68.9 % (42.0-75.0); Hemoglobin 10.5 g/dL (14.0-18.0); Mean Corpuscular HGB CONC 33.1 g/dL (32.0-36.0); Mean Corpuscular Hemoglobin 29.1 pg (27.0-31.0); Platelet Count 237 thou/uL (130-400); RBC Distribution Width 13.6 % (11.5-14.5); Red Blood Cell (RBC) Count 3.59 mill/uL (4.70-6.10)
[2017-05-08 06:03] LABS: Anion Gap 12 mmol/L (10-20); BUN (Urea Nitrogen) 27 mg/dL (8.4-25.7); Calc. Creatinine Clearance 200 mL/min (70-130); Calcium 8.6 mg/dL (7.8-10.44); Carbon Dioxide 30 mmol/L (22-29); Chloride 101 mmol/L (98-107); Estimated GFR-MDRD 86; Glucose 131 mg/dL (70-105); Potassium 3.2 mmol/L (3.5-5.1); Sodium 140 mmol/L (136-145)
[2017-05-08] MEDS ORDERED: Potassium Chloride 20 MEQ in Premix Bag 1 BAG IVPB PRN (07:57)
[2017-05-08] MEDS: Lisinopril 20 MG TAB PO SCH (08:04)
[2017-05-08] MEDS: Famotidine 20 MG TAB PO SCH ×2 (08:05→21:23)
[2017-05-08] MEDS: Aspirin 325 mg Enteric Coated Tablet PO SCH (08:05)
[2017-05-08] MEDS: Carvedilol 3.125 MG TAB PO SCH ×2 (08:05→21:23)
--- NOTE | 2017-05-08 10:25 | PDOC.CTH ---
Cardiology Progress Note - Subjective He is doing well. he had a large BM today. He has been walking with PT and doing well. - Objective Vital Signs Temp Pulse Resp BP Pulse Ox 05/08/17 08:04 154/99 H 05/08/17 08:00 98.2 F 88 16 98 05/08/17 07:00 98.2 F 05/08/17 04:00 98.5 F 05/08/17 02:46 72 17 97 05/08/17 00:00 98.6 F Weight 332 lb 7.313 oz 05/07/17 05/08/17 05/09/17 06:59 06:59 06:59 Intake Total 880 1410 450 Output Total 1900 2590 400 Balance -1020 -1180 50 - Physical Examination General/Neuro: alert & oriented x3, NAD Neck: no JVD present Lungs: unlabored respirations Heart: RRR Abdomen: NT/ND Extremities: + edema B (1+) - Telemetry Telemetry Rhythm: NSR - Labs Result Diagrams: 05/08/17 05:10 05/08/17 05:10 - Assessment/Plan 1. Multivessel CAD s/p CABG 2. Ischemic CM EF at 40-45% 3. HTN 4. HLP 5. Diabetes PLAN: - Continue to increase PT as tolerated. - Aspirin and statin for life - Continue Coreg and lisinopril at current doses for now. - Replace K.
[2017-05-08] MEDS ORDERED: Potassium Chloride 20 MEQ TAB PO SCH (10:30)
--- NOTE | 2017-05-08 10:58 | PRG ---
DATE OF SERVICE: 05/08/2017 SUBJECTIVE: Jose Carlos Foote has had bad night with cough and congestion, rattling in the chest. He has had difficulty with his CPAP. PHYSICAL EXAMINATION: VITAL SIGNS: His sats are 98% on room air, blood pressure 154/99, temperature 98, respirations 18. CHEST: Reveals bilateral rhonchi. CARDIAC: Normal S1, S2. No gallops. ABDOMEN: Soft. LABORATORY DATA: White count 9,000, hemoglobin and hematocrit 10 and 31, platelet count normal. Darcie ctrolytes are normal. IMPRESSION: 1. Status post coronary artery bypass grafting. 2. Sleep apnea. Continue bilevel positive airway pressure. I have added Symbicort to his cough medication. We will follow.
[2017-05-08] MEDS: Insulin Regular 300 UNITS/3 ML VIAL SC PRN ×2 (11:57→21:27)
[2017-05-08] MEDS: metFORMIN 500 MG TAB PO SCH (17:52)
[2017-05-08] MEDS: Mometasone/Formoterol 120 PUFF INHALER INH SCH (18:47)
[2017-05-08] MEDS ORDERED: LIVALO PO SCH (21:00)
[2017-05-09] MEDS: Insulin Regular 300 UNITS/3 ML VIAL SC PRN (05:31)
[2017-05-09 05:43] VITALS: TEMP 98.6
[2017-05-09 05:46] LABS: #Eosinphils 0.2 thou/uL (0.0-0.7); #Lymphocytes 2.1 thou/uL (1.20-3.40); #Monocytes 0.6 thou/uL (0.11-0.59); #Neutrophils 5.3 thou/uL (1.40-6.50); %Basophils 0.5 % (0.0-1.0); %Eosinophils 2.3 % (0.0-10.0); %Lymphocytes 25.3 % (21.0-51.0); %Monocytes 6.9 % (0.0-10.0); Hemoglobin 11.1 g/dL (14.0-18.0); Mean Corpuscular HGB CONC 32.6 g/dL (32.0-36.0); Mean Corpuscular Hemoglobin 28.8 pg (27.0-31.0); Mean Corpuscular Volume 88.4 fl (80.0-94.0); Mean Platelet Volume 6.7 fL (7.4-10.4); Platelet Count 299 thou/uL (130-400); RBC Distribution Width 13.6 % (11.5-14.5); Red Blood Cell (RBC) Count 3.86 mill/uL (4.70-6.10); White Blood Cell (WBC) Count 8.2 thou/uL (4.8-10.8)
[2017-05-09 05:54] LABS: Anion Gap 11 mmol/L (10-20); BUN (Urea Nitrogen) 22 mg/dL (8.4-25.7); Calc. Creatinine Clearance 203 mL/min (70-130); Calcium 8.9 mg/dL (7.8-10.44); Carbon Dioxide 28 mmol/L (22-29); Chloride 102 mmol/L (98-107); Estimated GFR-MDRD 87; Glucose 143 mg/dL (70-105); Potassium 3.6 mmol/L (3.5-5.1); Sodium 137 mmol/L (136-145)
[2017-05-09] MEDS: Mometasone/Formoterol 120 PUFF INHALER INH SCH (08:18)
[2017-05-09] MEDS: Aspirin 325 mg Enteric Coated Tablet PO SCH (08:27)
[2017-05-09] MEDS: Lisinopril 20 MG TAB PO SCH (08:27)
[2017-05-09] MEDS: Famotidine 20 MG TAB PO SCH (08:27)
[2017-05-09] MEDS: metFORMIN 500 MG TAB PO SCH (08:27)
[2017-05-09] MEDS: Carvedilol 3.125 MG TAB PO SCH (08:28)
[2017-05-09 08:29] VITALS: BP 146/96
--- NOTE | 2017-05-09 12:20 | PRG ---
DATE OF SERVICE: 05/09/2017 SUBJECTIVE: This morning, he is awake, alert, and responsive, in no distress. OBJECTIVE: VITAL SIGNS: Blood pressure is 146/90, sats 94%, respiratory rate 18, temperature 98. CHEST: Decreased breath sounds, no wheezing. CARDIAC: Normal S1, S2. No gallops. ABDOMEN: Soft. LABORATORY DATA: White count 8000, hemoglobin and hematocrit 11 and 34, platelet count normal. Elec trolytes are normal. IMPRESSION: 1. Obstructive sleep apnea, corrected with nocturnal BiPAP. 1. Coronary artery bypass grafting. PLAN: Continue PT, supportive care, and outpatient sleep study.
[2017-05-11 13:28] LABS: Actual Bicarbonate (HCO3a) 27.1 mEq/L (22-26); CO2 Tension 53.9 mmHg (35.0-45.0); Hematocrit-ABG 47.3 % (42.0-52.0); Hemoglobin (Hb) 15.1 g/dL (14.0-18.0); O2 Tension (PaO2) 68.3 mmHg (80.0-100.0); pH, Arterial 7.32 (7.35-7.45)
[2017-05-11 13:29] LABS: Analyzer IN Cardio OR; Calcium, Ionized 1.2 mmol/L (1.12-1.30); Puncture Site ALINE
[2017-05-11 13:31] LABS: Actual Bicarbonate (HCO3a) 22.1 mEq/L (22-26); Analyzer IN Cardio OR; Base Excess (BEa) -1.8 mEq/L (0 (+/-) 2.5); CO2 Tension 34.9 mmHg (35.0-45.0); Calcium, Ionized 1.1 mmol/L (1.12-1.30); Hematocrit-ABG 44.6 % (42.0-52.0); Hemoglobin (Hb) 14.5 g/dL (14.0-18.0); O2 Tension (PaO2) 189.5 mmHg (80.0-100.0); Puncture Site ALINE; pH, Arterial 7.42 (7.35-7.45)
[2017-05-11 13:32] LABS: Actual Bicarbonate (HCO3a) 20.9 mEq/L (22-26); CO2 Tension 33.8 mmHg (35.0-45.0); pH, Arterial 7.41 (7.35-7.45)
[2017-05-11 13:33] LABS: Analyzer IN Cardio OR; Base Excess (BEa) -2.9 mEq/L (0 (+/-) 2.5); Hematocrit-ABG 44.9 % (42.0-52.0); Hemoglobin (Hb) 14.7 g/dL (14.0-18.0); Puncture Site ALINE
[2017-05-11 13:34] LABS: Actual Bicarbonate (HCO3a) 24.7 mEq/L (22-26); Base Excess (BEa) -0.6 mEq/L (0 (+/-) 2.5); CO2 Tension 43.1 mmHg (35.0-45.0); Hematocrit-ABG 37.9 % (42.0-52.0); Hemoglobin (Hb) 12.7 g/dL (14.0-18.0); pH, Arterial 7.38 (7.35-7.45)
[2017-05-11 13:35] LABS: Analyzer IN Cardio OR; Puncture Site ALINE
[2017-05-11 13:35] LABS: Actual Bicarbonate (HCO3v) 26 mEq/L (22-26); Analyzer IN Cardio OR; Base Excess -0.3 mEq/L (0 (+/- 2.5)); pH (venous) 7.34 (7.35-7.45)
[2017-05-11 13:36] LABS: Calcium, Ionized 1.04 mmol/L (1.16-1.32); Chloride (ABG LAB) 100 mmol/L (98-106); Hematocrit-VBG 38.2 % (39-50); Hemoglobin (Hb) 12.7 g/dL (13.1-17.2); Potassium - ABG Lab 4.3 mmol/L (3.70-5.30); Sodium 138.2 mmol/L (133-146)
[2017-05-11 13:40] LABS: Actual Bicarbonate (HCO3a) 24.7 mEq/L (22-26); Base Excess (BEa) -0.9 mEq/L (0 (+/-) 2.5); CO2 Tension 44.3 mmHg (35.0-45.0); Hematocrit-ABG 39.3 % (42.0-52.0); Hemoglobin (Hb) 13.4 g/dL (14.0-18.0); pH, Arterial 7.36 (7.35-7.45)
[2017-05-11 13:41] LABS: Analyzer IN Cardio OR; Puncture Site ALINE
[2017-05-11 13:47] LABS: Actual Bicarbonate (HCO3v) 26 mEq/L (22-26); Analyzer IN Cardio OR; Base Excess -0.4 mEq/L (0 (+/- 2.5)); pH (venous) 7.32 (7.35-7.45)
[2017-05-11 13:48] LABS: Calcium, Ionized 1.03 mmol/L (1.16-1.32); Chloride (ABG LAB) 100 mmol/L (98-106); Hematocrit-VBG 38.5 % (39-50); Hemoglobin (Hb) 13.7 g/dL (13.1-17.2); Potassium - ABG Lab 4.2 mmol/L (3.70-5.30)
[2017-05-11 13:48] LABS: CO2 Tension 47.8 mmHg (35.0-45.0); O2 Tension (PaO2) 313.7 mmHg (80.0-100.0); pH, Arterial 7.33 (7.35-7.45)
[2017-05-11 13:49] LABS: Actual Bicarbonate (HCO3a) 24.4 mEq/L (22-26); Analyzer IN Cardio OR; Calcium, Ionized 1.1 mmol/L (1.12-1.30); Hematocrit-ABG 40.3 % (42.0-52.0); Hemoglobin (Hb) 13.2 g/dL (14.0-18.0); Puncture Site ALINE
[2017-05-11 13:50] LABS: Actual Bicarbonate (HCO3a) 23.1 mEq/L (22-26); Base Excess (BEa) -2.5 mEq/L (0 (+/-) 2.5); Hemoglobin (Hb) 12.7 g/dL (14.0-18.0); O2 Tension (PaO2) 70.3 mmHg (80.0-100.0); pH, Arterial 7.35 (7.35-7.45)
[2017-05-11 13:51] LABS: Analyzer IN Cardio OR; Calcium, Ionized 1.2 mmol/L (1.12-1.30); Puncture Site ALINE
[2017-05-11 13:51] LABS: Actual Bicarbonate (HCO3a) 21.7 mEq/L (22-26); CO2 Tension 41.7 mmHg (35.0-45.0); O2 Tension (PaO2) 121.3 mmHg (80.0-100.0); pH, Arterial 7.33 (7.35-7.45)
[2017-05-11 13:52] LABS: Analyzer IN Cardio OR; Calcium, Ionized 1.1 mmol/L (1.12-1.30); Hematocrit-ABG 42.5 % (42.0-52.0); Hemoglobin (Hb) 14.2 g/dL (14.0-18.0); Puncture Site ALINE
== END 2017-05-09 10:08 | disposition home or self-care (01) | DRG 234 ==
LOC: CCL 06:02 → CCU 07:38
PROVIDERS: ADMIT Internal Medicine Cardiovascular Disease; ATTEND Internal Medicine Cardiovascular Disease
PROC: B2111ZZ Fluoroscopy of Multiple Coronary Arteries using Low Osmolar Contrast (ICD-10-PCS; 2017-05-03)
PROC: B2151ZZ Fluoroscopy of Left Heart using Low Osmolar Contrast (ICD-10-PCS; 2017-05-03)
PROC: 02110Z9 Bypass Coronary Artery, Two Arteries from Left Internal Mammary, Open Approach (ICD-10-PCS; principal; 2017-05-04)
PROC: 02110AW Bypass Coronary Artery, Two Arteries from Aorta with Autologous Arterial Tissue, Open Approach (ICD-10-PCS; 2017-05-04)
PROC: 03BC4ZZ Excision of Left Radial Artery, Percutaneous Endoscopic Approach (ICD-10-PCS; 2017-05-04)
PROC: 06BQ4ZZ Excision of Left Saphenous Vein, Percutaneous Endoscopic Approach (ICD-10-PCS; 2017-05-04)
PROC: 5A1221Z Performance of Cardiac Output, Continuous (ICD-10-PCS; 2017-05-04)
PROC: B24BZZ4 Ultrasonography of Heart with Aorta, Transesophageal (ICD-10-PCS; 2017-05-04)
PROC: 02HV33Z Insertion of Infusion Device into Superior Vena Cava, Percutaneous Approach (ICD-10-PCS; 2017-05-04)
DX: I25.10 Atherosclerotic heart disease of native coronary artery without angina pectoris (principal); Z68.41 Body mass index [BMI] 40.0-44.9, adult; E66.2 Morbid (severe) obesity with alveolar hypoventilation; G47.33 Obstructive sleep apnea (adult) (pediatric); R94.39 Abnormal result of other cardiovascular function study; Z82.49 Family history of ischemic heart disease and other diseases of the circulatory system; E78.5 Hyperlipidemia, unspecified; F17.210 Nicotine dependence, cigarettes, uncomplicated; E11.9 Type 2 diabetes mellitus without complications; I10 Essential (primary) hypertension; G50.0 Trigeminal neuralgia; I25.5 Ischemic cardiomyopathy
CPT/HCPCS: 36415; 36416; 71045; 80048; 80061; 82805; 85014; 85018; 85025; 85049; 85347; 85610; 85730; 86850; 86900; 86901; 90471; 90682; 93005; 93010; 93458; 93798; 94002; 94640; 94660; 99152; 99153; A4216; C1769; G0008; J0690; J1642; J1644; J1815; J1885; J1940; J2001; J2250; J2270; J2405; J2440; J2704; J2720; J3010; J3475; J3480; J7050; J7620; P9045; Q2036; S0017; S0028

== ENCOUNTER 2017-12-13 15:17 | Outpatient (CLI) | payer BC ==
--- NOTE | 2017-12-13 18:17 | MRI ---
MRI RIGHT SHOULDER PERFORMED WITHOUT CONTRAST ENHANCEMENT: HISTORY: Right shoulder pain. FINDINGS: There are some edema changes involving the distal end of the clavicle and adjacent acromion, with keke e erosive type, cystic change, which appears to be more of a chronic process, superimposed on more ac amarilis edema. No evidence of any fluid associated with the AC joint. The supraspinatus as well as infraspinatus tendon appears intact. The subscapularis muscle and tendo n are intact. The intraarticular portion of the biceps tendon appears tendinopic. There is evidence for a SLAP type posterior-superior labral tear. There is some irregularity to the labrum, extending to just above the mid equator level. The inferior glenohumeral ligament appears intact. IMPRESSION: 1. 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 2. Tendinopathy changes of the intraarticular portion of the biceps tendon, with a superior labrum a nterior and posterior type tear of the posterior-superior labrum. POS: RALPH
== END 2017-12-13 15:18 | disposition home or self-care (01) ==
LOC: TBSIIMAG 15:17
PROVIDERS: ATTEND Orthopaedic Surgery
DX: M25.511 Pain in right shoulder (principal); S43.431A Superior glenoid labrum lesion of right shoulder, initial encounter